=== PATIENT | male | born 1935 | race Caucasian/White ===

== ENCOUNTER 2021-06-23 01:44 | Emergency (ER) | payer MEDICARE ==
[~2021-06-23] VITALS: Ht 167.6 cm; Wt 70.3 kg
[2021-06-23] MEDS ORDERED: TDAP [DIPH/PERTUSSIS/TET] 0.5 ML VIAL IM ONE (02:17)
[2021-06-23] MEDS: TDAP [DIPH/PERTUSSIS/TET] 0.5 ML VIAL IM ONE (02:30)
--- NOTE | 2021-06-23 02:55 | NUR ---
PT IS RELEASED UNDER THE CARE OF HIS SON OCTAVIA IN STABLE CONDITION. PT IS ASSISTED TO THE CAR VIA WHEELCHAIR.
--- NOTE | 2021-06-23 02:56 | NUR ---
Patient discharged to home in stable condition ubder the care of his son. Written and verbal after care instructions given to the pt's son. Patient and his son verbalizes understanding of instruction.
== END 2021-06-23 02:57 | disposition home or self-care (01) ==
LOC: ER 01:47
DX: S09.90XA Unspecified injury of head, initial encounter (principal); W01.0XXA Fall on same level from slipping, tripping and stumbling without subsequent striking against object, initial encounter; Y93.89 Activity, other specified; Y92.89 Other specified places as the place of occurrence of the external cause; Y99.8 Other external cause status
CPT/HCPCS: 70450; 72125; 90471; 90715; 99284; A6403